=== PATIENT | male | born 1985 | race Caucasian/White ===

== ENCOUNTER 2016-07-07 20:04 | Emergency (ER) | payer OTHER ==
--- NOTE | ~2016-07-07 | ER ---
PATIENT'S NAME: CINDY CLARKE [facility] AGE: 31 Y [address] ROOM: [place] [id number] LOCATION: [facility] ADMIT DATE: 07/07/2016 ER/Outpatient Report DISCHARGE DATE: 07/07/2016 FAMILY PHYSICIAN: Jamal Boss MD ATTENDING PHYSICIAN: Mtat Velazquez Time of Arrival: 2010. Time of Evaluation: 2010. CHIEF COMPLAINT: Laceration. HISTORY OF PRESENT ILLNESS: The patient is a 31-year-old male who presents to the emergency department today with a chief complaint of right ankle laceration. That occurred at 06:30 this evening about 2 hours prior to arrival. He was caught with a plastic lid bucket while at work. Denies any fevers or chills. No nausea or vomiting. No diarrhea or constipation. He has been able to walk on it. His tetanus is up to date. PAST MEDICAL HISTORY: ADHD. PAST SURGICAL HISTORY: Appendectomy. SOCIAL HISTORY: The patient denies any tobacco, alcohol, or illicit drug use. ALLERGIES: NO KNOWN DRUG ALLERGIES. MEDICATIONS: None. REVIEW OF SYSTEMS: All systems are reviewed by myself and are negative with the exception of those discussed in HPI and past medical history. PHYSICAL EXAMINATION: VITAL SIGNS: Weight 78.8 kg, blood pressure 142/77, pulse 80, respiratory rate 16, temperature 98.6, oxygen saturation 95% on room air. GENERAL: The patient is a 31-year-old male, who appears his stated age, in no acute distress. HEENT: Normocephalic, atraumatic. PATIENT'S NAME: CINDY CLARKE [facility] AGE: 31 Y [address] ROOM: [place] [address] LOCATION: [facility] ADMIT DATE: 07/07/2016 ER/Outpatient Report DISCHARGE DATE: 07/07/2016 FAMILY PHYSICIAN: Jamal Boss MD ATTENDING PHYSICIAN: Matt Velazquez NECK: Supple. There is no nuchal rigidity. CARDIOVASCULAR: Regular rate and rhythm. No murmurs, rubs, or gallops. LUNGS: Clear to auscultation bilaterally. No wheezes, rales, or rhonchi. ABDOMEN: Soft, nontender, and nondistended. No rebound, rigidity, or guarding. MUSCULOSKELETAL: The patient moves all 4 extremities. 5/5 muscle strength. He has some full extension and flexion at his ankle. SKIN: The patient has a 1.5 cm U-shaped laceration to the Achilles portion of his foot. It is red, superficial, and does not involve any tendinous involvement. LABORATORY DATA AND X-RAYS: None. IMPRESSION: 1. A 1.5 cm laceration with tissue adhesive repair. 2. Initial visit. EMERGENCY DEPARTMENT COURSE: The patient was brought back to the examination room. Seen and evaluated by myself. History and physical performed as described above. I have discussed the recommendation for tissue adhesive repair. The patient is agreeable. The area is copiously irrigated with normal saline. There is no evidence of foreign body noted. Tissue adhesive is applied with good cosmesis. There is good hemostasis. I have discussed followup with Dr. Boss in 3-5 days for re-evaluation. I have discussed [id number] instructions including worsening symptoms or any other concerns to return to the emergency department as soon as possible. The patient is agreeable without further questions. DISPOSITION: The patient discharged home in good condition. DO AKIL RAMAN/jayashreel /[id number] d: 07/08/16 0047 t: 07/13/16 1311, OUTPATIENT REPORT
== END 2016-07-07 20:26 | disposition disaster alternative care site (69) ==
LOC: GACC 20:04
PROC: 0HQMXZZ Repair Right Foot Skin, External Approach (ICD-10-PCS; principal; 2016-07-07)
DX: S91.011A Laceration without foreign body, right ankle, initial encounter (principal); W23.0XXA Caught, crushed, jammed, or pinched between moving objects, initial encounter